=== PATIENT | female | born 2000 ===

== ENCOUNTER 2023-10-07 11:50 | Outpatient (CLI) | payer OTHER ==
[2023-10-07] MEDS ORDERED: PRENATAL CAPLE1 EAC1 PO (12:24)
[2023-10-07 13:02] LABS: HEMOGLOBIN 10.8 g/dL (12.0-15.00); MEAN CELL VOLUME 95.7 fL (80.00-100.00); MEAN CORPUSCULAR HEMOGLOBIN 32.4 pg (27.00-32.0); MEAN CORPUSCULAR HGB CONC 33.9 g/dl (32.0-36.0); PLATELET COUNT 141 K/uL (150-450); RED BLOOD COUNT 3.34 M/uL (4.00-6.00); RED CELL DISTRIBUTION WIDTH 14.9 % (11.5-14.5)
[2023-10-07 13:03] LABS: PH,URINE 7.5 (5.0-8.0); URINE APPEARANCE Cloudy; URINE BILIRRUBIN Negative (NEGATIVE); URINE BLOOD Negative; URINE COLOR Yellow; URINE GLUCOSE Negative (NEGATIVE); URINE LEUKOCYTE Large; URINE NITRATE Negative; URINE PROTEIN Negative (NEGATIVE); URINE UROBILINOGEN 0.2 E.U./dl
[2023-10-07 13:07] LABS: URINE BACTERIA 1025.5 uL (0.0-1933); URINE EPITHELIAL CELLS 46.2 uL (0.0-38.8); URINE WBC 14.8 uL (0.0-23.2)
[2023-10-07 13:38] LABS: URINE RBC 1.5 uL (0.0-20.8)
[2023-10-07 13:39] LABS: URINE CRYSTALS FEW /HPF
== END 2023-10-07 23:55 | disposition home or self-care (01) ==
LOC: OBS/DEL 11:50
PROVIDERS: Obstetrics & Gynecology; ATTEND Specialist
DX: O26.892 Other specified pregnancy related conditions, second trimester (principal); O35.00X0 Maternal care for (suspected) central nervous system malformation or damage in fetus, unspecified, not applicable or unspecified; O35.3XX0 Maternal care for (suspected) damage to fetus from viral disease in mother, not applicable or unspecified; O40.1XX0 Polyhydramnios, first trimester, not applicable or unspecified; O60.00 Preterm labor without delivery, unspecified trimester; Z3A.25 25 weeks gestation of pregnancy

== ENCOUNTER 2023-11-14 14:35 | Outpatient (CLI) | payer OTHER ==
[~2023-11-14 14:35] MED LIST: PRENATAL CAPLE1 EAC1 PO
== END 2023-11-14 14:37 | disposition home or self-care (01) ==
LOC: PRENATAL 14:35
PROVIDERS: ATTEND Obstetrics & Gynecology Maternal & Fetal Medicine
DX: O26.849 Uterine size-date discrepancy, unspecified trimester (principal); O36.8199 Decreased fetal movements, unspecified trimester, other fetus; O40.1XX0 Polyhydramnios, first trimester, not applicable or unspecified; Z3A.29 29 weeks gestation of pregnancy

== ENCOUNTER 2023-12-19 12:58 | Outpatient (CLI) | payer OTHER | END 2023-12-19 13:00 | disposition home or self-care (01) | LOC: PRENATAL 12:58 | PROVIDERS: ATTEND Obstetrics & Gynecology Maternal & Fetal Medicine | DX: O26.849 Uterine size-date discrepancy, unspecified trimester (principal); O36.8199 Decreased fetal movements, unspecified trimester, other fetus; O40.1XX0 Polyhydramnios, first trimester, not applicable or unspecified; Z3A.34 34 weeks gestation of pregnancy ==

== ENCOUNTER 2024-01-15 13:30 | Inpatient (IN) | payer OTHER ==
[~2024-01-15] VITALS: Ht 160 cm; Wt 59.4 kg
[2024-01-22] MEDS ORDERED: AMPICILLIN SODIUM 2,000 MG VIAL IV STA (18:04)
[2024-01-22] MEDS ORDERED: RINGERS SOLUTION,LACTATED 1,000 ML IV SCH (18:15)
[2024-01-22] MEDS ORDERED: OXYTOCIN 500 ML IV SCH (18:15)
[2024-01-22 18:25] LABS: HEMATOCRIT 39.4 % (36.0-45.00); HEMOGLOBIN 13.6 g/dL (12.0-15.00); MEAN CELL VOLUME 96.8 fL (80.00-100.00); MEAN CORPUSCULAR HEMOGLOBIN 33.3 pg (27.00-32.0); MEAN CORPUSCULAR HGB CONC 34.4 g/dl (32.0-36.0); RED BLOOD COUNT 4.07 M/uL (4.00-6.00); RED CELL DISTRIBUTION WIDTH 13.8 % (11.5-14.5)
[2024-01-22 18:27] LABS: URINE APPEARANCE Clear; URINE BILIRRUBIN Negative (NEGATIVE); URINE BLOOD Negative; URINE COLOR Yellow; URINE GLUCOSE Negative (NEGATIVE); URINE LEUKOCYTE Moderate; URINE NITRATE Negative; URINE PROTEIN Negative (NEGATIVE); URINE UROBILINOGEN 0.2 E.U./dl
[2024-01-22 18:30] LABS: URINE BACTERIA 516.5 uL (0.0-1933); URINE EPITHELIAL CELLS 15.1 uL (0.0-38.8); URINE WBC 29.6 uL (0.0-23.2)
[2024-01-22 18:44] LABS: PLATELET COUNT 112 K/uL (150-450)
[2024-01-22 18:45] LABS: URINE RBC 1.4 uL (0.0-20.8)
[2024-01-22 18:46] LABS: INR < 0.93; PROTHROMBIN TIME 9.5 SECONDS (9.0-11.5)
[2024-01-22 18:52] LABS: ALBUMIN 2.9 gm/dL (3.4-5.0); BILIRUBIN TOTAL 0.46 mg/dL (0.3-1.2); CREATININE SERUM 0.39 mg/dL (0.55-1.02); GFR 200.24; GLOBULINA 3.5 G/DL (2.4-3.5); POTASSIUM 3.71 mEq/L (3.5-5.1); TOTAL PROTEIN 6.4 gm/dL (6.4-8.2)
[2024-01-22] MEDS ORDERED: AMPICILLIN SODIUM 1,000 MG VIAL IV SCH (21:00)
[2024-01-22] MEDS ORDERED: PROMETHAZINE HCL 25 MG/ML AMPUL ONE (21:30)
[2024-01-22] MEDS ORDERED: PROMETHAZINE HCL 25 MG/ML AMPUL IV ONE (22:15)
[2024-01-22] MEDS ORDERED: MEPERIDINE HCL/PF 50 MG/ML VIAL IV ONE (22:15)
[2024-01-22] MEDS ORDERED: OXYTOCIN 20 UNITS/1000ML RL PIGGYBAG IV ONE ×2 (22:51→23:45)
[2024-01-22] MEDS ORDERED: ERYTHROMYCIN BASE 1 GM TUBE OP ONE ×2 (22:51→23:45)
[2024-01-22] MEDS ORDERED: CHLORHEXIDINE GLUCONATE 120 ML BOTTLE TOP ONE ×2 (22:51→23:45)
[2024-01-22] MEDS ORDERED: NALOXONE HCL 0.4 MG/ML AMPUL ONE (23:06)
[2024-01-22] MEDS ORDERED: LIDOCAINE HCL 1% 200MG/20ML VIAL IJ ONE (23:45)
[2024-01-22] MEDS ORDERED: ACETAMINOPHEN 325 MG TABLET PO PRN (23:45)
[2024-01-22] MEDS ORDERED: OxyCODONE HCL/APAP UD (PERCOCET) PO PRN (23:45)
[2024-01-23 08:14] LABS: HEMATOCRIT 35.6 % (36.0-45.00); HEMOGLOBIN 12.1 g/dL (12.0-15.00); MEAN CORPUSCULAR HEMOGLOBIN 32.6 pg (27.00-32.0); MEAN CORPUSCULAR HGB CONC 33.9 g/dl (32.0-36.0); RED BLOOD COUNT 3.71 M/uL (4.00-6.00); RED CELL DISTRIBUTION WIDTH 13.2 % (11.5-14.5)
[2024-01-23 08:29] LABS: PLATELET COUNT 113 K/uL (150-450)
[2024-01-23] MEDS ORDERED: HYDROCORTISONE 2.5% 30 GM TUBE RECTAL SCH ×2 (09:00→17:00)
[2024-01-23] MEDS ORDERED: BENZOCAINE/MENTHOL 90 ML BOTTLE TOP SCH (09:00)
== END 2024-01-24 14:50 | disposition home or self-care (01) | DRG 807 ==
LOC: OB/GYN 01-22 17:51 → LDR 01-22 17:51 → OB/GYN 01-22 23:57
PROVIDERS: ADMIT Specialist; ATTEND Specialist
PROC: 10E0XZZ Delivery of Products of Conception, External Approach (ICD-10-PCS; principal; 2024-01-22)
PROC: 0W8NXZZ Division of Female Perineum, External Approach (ICD-10-PCS; 2024-01-22)
PROC: 4A1HXCZ Monitoring of Products of Conception, Cardiac Rate, External Approach (ICD-10-PCS; 2024-01-22)
DX: O99.824 Streptococcus B carrier state complicating childbirth (principal); Z37.0 Single live birth; Z3A.39 39 weeks gestation of pregnancy; Z20.822 Contact with and (suspected) exposure to COVID-19